=== PATIENT | female | born 1965 | race Two or more races ===

== ENCOUNTER 2023-02-01 11:08 | Inpatient (IN) | payer OTHER ==
[2023-02-01 11:15] VITALS: TEMP 98.9; BMI 22.2
[2023-02-01] MEDS ORDERED: MIDAZOLAM IN 0.9 % SOD.CHLORID 100 MG/100 ML PLAST..BAG IVPB SCH (11:30)
[2023-02-01] MEDS ORDERED: FENTANYL IVPB 500 MCG/100 ML BAG IVPB SCH (11:30)
[2023-02-01] MEDS ORDERED: FENTANYL NS IVPB 500 MCG/100 ML BAG IVPB SCH ×2 (12:00→20:15)
[2023-02-01] MEDS ORDERED: FENTANYL NS IVPB 500 MCG/100 ML BAG IVPB ONE ×3 (12:08→20:27)
[2023-02-01 12:57] LABS: HEMATOCRIT 39.4 % (32.4-45.2); HEMOGLOBIN 12.8 GM/dL (10.7-15.3); MCH 30.2 pg (25.7-33.7); MCHC 32.6 g/dl (32.0-36.0); MEAN CELL VOLUME 92.7 fl (80-96); MEAN PLT VOLUME 8.1 fl (7.5-11.1); PLATELET COUNT 417 10^3/uL (134-434); RBC 4.25 M/mm3 (3.60-5.2); RDW 15.9 % (11.6-15.6); WHITE BLOOD COUNT 11.2 K/mm3 (4.0-10.0)
[2023-02-01] MEDS ORDERED: LORazepam 2 MG/ML SDV VIAL IVPUSH ONE (12:57)
[2023-02-01 13:10] LABS: ACTIVATED PTT 22.8 SECONDS (25.2-36.5); INR 1.12 (0.83-1.09)
[2023-02-01 13:15] LABS: LACTIC ACID 3.8 mmol/L (0.4-2.0)
[2023-02-01 13:18] LABS: ANISOCYTOSIS 0; CALCIUM 10.7 mg/dL (8.5-10.1); HELMET CELLS 0; HOWELL-JOLLY BODIES 0; MACROCYTOSIS 0; OVALOCYTE 0; ROULEAU 0; SICKELED CELLS 0; TARGET CELLS 0; TEAR DROP CELLS 0; TOXIC GRANULATION 0
[2023-02-01 13:19] LABS: ALBUMIN 3.9 g/dl (3.4-5.0); BLOOD UREA NITROGEN 34.7 mg/dL (7-18); MAGNESIUM 2.5 mg/dL (1.8-2.4)
[2023-02-01 13:21] LABS: PHOSPHOROUS 3.6 mg/dL (2.5-4.9)
[2023-02-01 13:22] LABS: CREATININE 1.2 mg/dL (0.55-1.3)
[2023-02-01 13:23] LABS: TOT PROT 9.6 g/dl (6.4-8.2)
[2023-02-01] MEDS ORDERED: SODIUM CHLORIDE 1,000 ML IV STA (13:57)
[2023-02-01 14:26] LABS: ARTERIAL BLOOD GAS PO2 108.3 mmHg (80-100); ARTERIAL BLOOD GAS pH 7.431 (7.350-7.450)
[2023-02-01 14:28] LABS: ALLENS TEST POSITIVE
[2023-02-01 14:29] LABS: VENT RATE 12
[2023-02-01 15:45] LABS: EPI CELLS >36 /uL (0-25.1); HYALINE CASTS 14 /uL (0-3.1); URINE APPEARANCE CLEAR; URINE BACTERIA 24 /uL (0-1359); URINE BILIRUBIN NEGATIVE (NEGATIVE); URINE COLOR YELLOW; URINE GLUCOSE (UA) NEGATIVE (NEGATIVE); URINE KETONE TRACE (NEGATIVE); URINE LEUK ESTERASE 1+ (NEGATIVE); URINE NITRITE NEGATIVE (NEGATIVE); URINE PROTEIN 3+ (NEGATIVE); URINE RBC 28 /uL (0-23.9); URINE WBC 93 /uL (0-25.8)
[2023-02-01] MEDS ORDERED: levETIRAcetam 500 MG/5 ML INJECTION VIAL IVPB ONE ×2 (16:25→16:48)
[2023-02-01] MEDS ORDERED: PROPOFOL 1,000,000 MCG/100 ML VIAL ONE (21:04)
[2023-02-01] MEDS ORDERED: PROPOFOL 1,000,000 MCG/100 ML VIAL IVPB SCH (21:15)
[2023-02-01 21:51] VITALS: RESP 12
[2023-02-01 22:00] VITALS: BP 101/69; PULSE 102
== END 2023-02-01 22:00 | disposition short-term general hospital (02) | DRG 100 ==
LOC: JER 11:08 → JERBED 13:43
PROVIDERS: ADMIT Internal Medicine; ATTEND Internal Medicine
PROC: 5A1935Z Respiratory Ventilation, Less than 24 Consecutive Hours (ICD-10-PCS; principal; 2023-02-01)
DX: G40.813 Lennox-Gastaut syndrome, intractable, with status epilepticus (principal); J96.01 Acute respiratory failure with hypoxia; I24.8 Other forms of acute ischemic heart disease; G12.21 Amyotrophic lateral sclerosis; E87.20 Acidosis, unspecified; G40.901 Epilepsy, unspecified, not intractable, with status epilepticus; I69.391 Dysphagia following cerebral infarction; R13.19 Other dysphagia; E03.9 Hypothyroidism, unspecified; K59.00 Constipation, unspecified
CPT/HCPCS: 0241U-QW; 36415; 36600; 70450-TC; 71045-TC-FY; 72125-TC; 80053; 81003; 82803; 83605; 83735; 84100; 84484; 85025; 85610; 85730; 86850; 86900; 86901; 87077; 87086; 93005; 93010; 99291

== ENCOUNTER 2023-08-12 23:26 | Emergency (ER) | payer OTHER ==
[2023-08-12 23:41] VITALS: RESP 18; TEMP 98.1; BMI 22.4
[2023-08-13 05:14] VITALS: BP 108/54; PULSE 73
== END 2023-08-13 06:28 | disposition home or self-care (01) ==
LOC: JER 23:26
PROC: 0D20XUZ Change Feeding Device in Upper Intestinal Tract, External Approach (ICD-10-PCS; principal; 2023-08-12)
DX: K94.23 Gastrostomy malfunction (principal)
CPT/HCPCS: 74018-TC-FY; 99283-25

== ENCOUNTER 2024-05-20 04:32 | Emergency (ER) | payer OTHER ==
[2024-05-20 04:40] VITALS: BMI 24.7
[2024-05-20 07:06] VITALS: RESP 18; TEMP 98.2
[2024-05-20 12:00] VITALS: BP 108/65; PULSE 82
== END 2024-05-20 12:17 | disposition home or self-care (01) ==
LOC: JER 04:32
PROC: 0D20XUZ Change Feeding Device in Upper Intestinal Tract, External Approach (ICD-10-PCS; principal; 2024-05-20)
DX: K94.23 Gastrostomy malfunction (principal); R14.0 Abdominal distension (gaseous)
CPT/HCPCS: 43762; 74018-TC-FY; 74150-TC; 99284-25